=== PATIENT | female | born 1985 | race African-American/Black ===

== ENCOUNTER 2019-11-17 19:40 | Inpatient (IN) | payer MEDICAID, OTHER ==
[~2019-11-17] VITALS: Ht 185.4 cm; Wt 186.4 kg
[~2019-11-17 19:40] MED LIST: ALBU0.5N2; [UNRECOGNIZED DRUG - CODE]
[2019-11-17] MEDS ORDERED: MORPHINE SULFATE 4 MG/ML SYR/VIAL IV ONE (20:45)
[2019-11-17] MEDS ORDERED: ONDANSETRON HCL 4 MG/2 ML VIAL IV ONE (20:45)
[2019-11-17 22:16] LABS: BUN/Creatinine Ratio 10.9; Calcium 8.3 mg/dL (8.5-10.1); Magnesium 2.3 mg/dL (1.6-2.6); Potassium 3.1 mmol/L (3.5-5.1)
[2019-11-17 22:19] LABS: Bilirubin, Total 0.2 mg/dL (0.2-1.0); Total Protein 7.2 g/dL (6.4-8.2)
[2019-11-17 22:22] LABS: Basophils # (auto) 0 10 ^3/uL (0-0.2); Eosinophils # (auto) 0.1 10 ^3/uL (0-0.8); Eosinophils % (auto) 1.1 % (0.0-7.0); Lymphocytes # (auto) 3.1 10 ^3/uL (0.4-5.4); Monocytes # (auto) 0.5 10 ^3/uL (0-1.3)
[2019-11-17 22:23] LABS: Basophils % (auto) 0.3 % (0.0-2.0); Hematocrit 34.6 % (36.0-46.0); Lymphocytes % (auto) 39.6 % (10.0-50.0); Mean Corpuscular Hemoglobin 23.9 pg (28.0-32.0); Mean Corpuscular Hgb Conc. 31.6 g/dL (32.0-36.0); Mean Corpuscular Volume 75.6 fL (80.0-100.0); Monocytes % (auto) 6.7 % (0.0-12.0); Neutrophils # (auto) 4.1 10 ^3/uL (1.6-8.6); Neutrophils % (auto) 52.3 % (37.0-80.0); Platelet Count (auto) 316 10^3/uL (140-450); Red Blood Cells 4.58 10^6/uL (4.0-5.20); White Blood Cell 7.9 10^3/uL (4.4-10.8)
[2019-11-18] VITALS (7 sets, daily range): BP systolic 113–140; BP diastolic 59–93
[2019-11-18] MEDS ORDERED: ASPirin 81 mg TAB PO ONE (00:45)
[2019-11-18] MEDS ORDERED: POTASSIUM CHL 20 Meq TABLET PO ONE ×2 (01:00→10:45)
[2019-11-18] MEDS ORDERED: SODIUM CHLORIDE 0.9% 1,000 ML IV SCH (01:36)
[2019-11-18] MEDS ORDERED: ACETAMINOPHEN 325 MG TAB PO PRN (01:45)
[2019-11-18] MEDS ORDERED: IPRATROPIUM BROM 0.5 MG/2.5ML INH SOL NEB PRN (01:45)
[2019-11-18] MEDS ORDERED: ONDANSETRON HCL 4 MG/2 ML VIAL IV PRN (01:45)
[2019-11-18] MEDS ORDERED: ALBUTEROL SULF 2.5 MG/0.5ML(0.5%) NEB SOLN NEB PRN (01:45)
[2019-11-18 06:16] LABS: Potassium 3.4 mmol/L (3.5-5.1)
[2019-11-18 06:26] LABS: Albumin 2.8 g/dL (3.4-5.0); BUN/Creatinine Ratio 14.4; Calcium 8.1 mg/dL (8.5-10.1); Magnesium 2.3 mg/dL (1.6-2.6)
[2019-11-18 06:28] LABS: Bilirubin, Total 0.2 mg/dL (0.2-1.0)
[2019-11-18] MEDS: ASPirin 81 mg TAB PO SCH (09:44)
[2019-11-18] MEDS: LISINOPRIL 10 MG TAB PO SCH (09:45)
[2019-11-18] MEDS: DOCUSATE SOD 100 MG CAP PO SCH (09:45)
[2019-11-18] MEDS ORDERED: CARVEDILOL 3.125 MG TAB PO SCH (10:00)
[2019-11-18] MEDS ORDERED: CLOPIDOGREL BISULFATE 75 MG TAB PO SCH (10:00)
[2019-11-18 14:15] LABS: Urine Bacteria NONE SEEN /hpf (None Seen); Urine Blood Negative /uL (Negative); Urine Mucus FEW (None Seen); Urine Specific Gravity 1.021 (1.001-1.035); Urine WBC 4 /hpf (0 - 5)
[2019-11-18] MEDS: traMADol HCL 50 MG TAB PO PRN (14:50)
[2019-11-18] MEDS ORDERED: MORPHINE SULF INJ 2 MG/ML SYRINGE 1ML IV ONE (19:15)
[2019-11-18] MEDS: ATORVASTATIN 20 MG TAB PO SCH (22:15)
[2019-11-18] MEDS: METOPROLOL TARTRATE 25 MG TAB PO SCH (22:16)
[2019-11-19 05:00] VITALS: BP 145/98
[2019-11-19 07:15] LABS: INR 0.96 (0.9-1.15); Potassium 3.7 mmol/L (3.5-5.1)
[2019-11-19 07:34] LABS: BUN/Creatinine Ratio 13.4; Calcium 8.1 mg/dL (8.5-10.1); Magnesium 2.4 mg/dL (1.6-2.6)
[2019-11-19 08:46] LABS: Urine Bacteria NONE SEEN /hpf (None Seen); Urine Blood Negative /uL (Negative); Urine Specific Gravity 1.012 (1.001-1.035); Urine WBC 2 /hpf (0 - 5)
[2019-11-19 09:18] VITALS: BP 143/88
[2019-11-19] MEDS: LISINOPRIL 10 MG TAB PO SCH (10:02)
[2019-11-19] MEDS: ASPirin 81 mg TAB PO SCH (10:02)
[2019-11-19] MEDS: DOCUSATE SOD 100 MG CAP PO SCH (10:03)
[2019-11-19] MEDS: METOPROLOL TARTRATE 25 MG TAB PO SCH ×3 (10:03→21:59)
[2019-11-19] MEDS ORDERED: POTASSIUM CHL 10 Meq TABLET PO ONE (12:00)
[2019-11-19] MEDS: Ensure HIGH Protein Chocolate 8oz Bottle PO SCH ×2 (12:00→18:00)
[2019-11-19] MEDS ORDERED: HCTZ 25 MG TAB PO ONE (12:00)
[2019-11-19 13:08] VITALS: BP 156/106
[2019-11-19 17:11] VITALS: BP 150/95
[2019-11-19] MEDS: traMADol HCL 50 MG TAB PO PRN (17:44)
[2019-11-19] MEDS: ATORVASTATIN 20 MG TAB PO SCH (21:59)
[2019-11-19 22:00] VITALS: BP 151/94
[2019-11-19] MEDS ORDERED: HYDROcodone-ACET 5/325MG TAB PO PRN ×2 (22:30→23:00)
[2019-11-20 05:00] VITALS: BP 148/94
[2019-11-20 06:35] LABS: Basophils # (auto) 0 10 ^3/uL (0-0.2); Basophils % (auto) 0.3 % (0.0-2.0); Eosinophils # (auto) 0.2 10 ^3/uL (0-0.8); Eosinophils % (auto) 2.3 % (0.0-7.0); Hematocrit 34.9 % (36.0-46.0); Hemoglobin 10.9 g/dL (12.2-16.2); Lymphocytes # (auto) 3.6 10 ^3/uL (0.4-5.4); Lymphocytes % (auto) 49.7 % (10.0-50.0); Mean Corpuscular Hemoglobin 23.8 pg (28.0-32.0); Mean Corpuscular Hgb Conc. 31.2 g/dL (32.0-36.0); Mean Corpuscular Volume 76.3 fL (80.0-100.0); Monocytes # (auto) 0.5 10 ^3/uL (0-1.3); Monocytes % (auto) 6.6 % (0.0-12.0); Neutrophils % (auto) 41.1 % (37.0-80.0); Nucleated Red Blood Cells % 0.2 %; Platelet Count (auto) 291 10^3/uL (140-450); Red Blood Cells 4.58 10^6/uL (4.0-5.20); Red Cell Distribution Width 16.9 % (11.8-14.3); White Blood Cell 7.3 10^3/uL (4.4-10.8)
[2019-11-20 06:47] LABS: Potassium 3.5 mmol/L (3.5-5.1)
[2019-11-20 07:16] LABS: BUN/Creatinine Ratio 11.5; Calcium 8.7 mg/dL (8.5-10.1)
[2019-11-20 08:00] VITALS: BP 139/80
[2019-11-20] MEDS: LISINOPRIL 10 MG TAB PO SCH (09:34)
[2019-11-20] MEDS: DOCUSATE SOD 100 MG CAP PO SCH (09:34)
[2019-11-20] MEDS: ASPirin 81 mg TAB PO SCH (09:35)
[2019-11-20] MEDS: METOPROLOL TARTRATE 25 MG TAB PO SCH (09:35)
[2019-11-20] MEDS ORDERED: HCTZ 25 MG TAB PO SCH (10:00)
[2019-11-20] MEDS ORDERED: POTASSIUM CHL 10 Meq TABLET PO SCH (10:00)
[2019-11-20 12:00] VITALS: BP 141/97
[2019-11-20] MEDS ORDERED: TERBUTALINE SULFATE 1 MG/ML 1ML VIAL SC ONE (13:56)
== END 2019-11-20 12:35 | disposition home or self-care (01) | DRG 201 ==
LOC: EDBD 19:40 → ER 19:40 → EDUNIT# 19:40 → TELE 19:41 → TELE-CENTR 11-18 03:41
PROVIDERS: ADMIT Hospitalist; ATTEND Internal Medicine
DX: I47.1 Supraventricular tachycardia (principal); E66.01 Morbid (severe) obesity due to excess calories; E87.6 Hypokalemia; I10 Essential (primary) hypertension; J45.909 Unspecified asthma, uncomplicated; K80.20 Calculus of gallbladder without cholecystitis without obstruction; Z79.899 Other long term (current) drug therapy; Z82.49 Family history of ischemic heart disease and other diseases of the circulatory system; Z83.3 Family history of diabetes mellitus; Z68.43 Body mass index [BMI] 50.0-59.9, adult; E44.0 Moderate protein-calorie malnutrition
CPT/HCPCS: 36415; 71045; 76705; 80048; 80053; 80061; 81001; 83735; 83880; 84443; 84484; 85025; 85610; 85730; 93005; 93306; G0378; J2405

== ENCOUNTER 2021-10-14 | Emergency (ER) | payer MEDICAID ==
[~2021-10-14] VITALS: Ht 182.9 cm; Wt 175.5 kg
[~2021-10-14] MED LIST changes: +[UNRECOGNIZED DRUG - CODE]; -[UNRECOGNIZED DRUG - CODE]
[2021-10-14 01:11] LABS: Basophils # (auto) 0 10 ^3/uL (0-0.2); Basophils % (auto) 0.4 % (0.0-2.0); Eosinophils # (auto) 0.1 10 ^3/uL (0-0.8); Hemoglobin 9.7 g/dL (12.2-16.2); Lymphocytes # (auto) 2.6 10 ^3/uL (0.4-5.4); Monocytes # (auto) 0.5 10 ^3/uL (0-1.3); White Blood Cell 8.2 10^3/uL (4.4-10.8)
[2021-10-14 01:14] LABS: Eosinophils % (auto) 1.4 % (0.0-7.0); Hematocrit 30.8 % (36.0-46.0); Lymphocytes % (auto) 31.2 % (10.0-50.0); Mean Corpuscular Hemoglobin 23.9 pg (28.0-32.0); Mean Corpuscular Hgb Conc. 31.6 g/dL (32.0-36.0); Mean Corpuscular Volume 75.7 fL (80.0-100.0); Monocytes % (auto) 5.9 % (0.0-12.0); Neutrophils % (auto) 61.1 % (37.0-80.0); Red Blood Cells 4.06 10^6/uL (4.0-5.20); Red Cell Distribution Width 18.1 % (11.8-14.3)
[2021-10-14 01:33] LABS: Calcium 8.2 mg/dL (8.5-10.1)
[2021-10-14 01:35] LABS: BUN/Creatinine Ratio 9.4
[2021-10-14 01:37] LABS: Bilirubin, Total 0.2 mg/dL (0.2-1.0); Total Protein 7.7 g/dL (6.4-8.2)
[2021-10-14 02:06] LABS: Potassium 2.9 mmol/L (3.5-5.1)
[2021-10-14 02:12] LABS: Urine Bacteria NONE SEEN /hpf (None Seen); Urine Blood 3+ /uL (Negative); Urine Specific Gravity 1.018 (1.001-1.035); Urine WBC 31 /hpf (0 - 5)
[2021-10-14] MEDS ORDERED: ACETAMINOPHEN 325 MG TAB PO ONE (02:15)
[2021-10-14] MEDS ORDERED: POTASSIUM EFFERVESENT TAB 25 MEQ PO ONE (02:30)
[2021-10-14] MEDS ORDERED: CEPH-322 PO (04:43)
[2021-10-14 06:15] VITALS: BP 144/93
== END 2021-10-14 06:39 | disposition home or self-care (01) ==
LOC: ER 00:03
DX: O23.41 Unspecified infection of urinary tract in pregnancy, first trimester (principal); N39.0 Urinary tract infection, site not specified; Z79.899 Other long term (current) drug therapy; Z3A.01 Less than 8 weeks gestation of pregnancy
CPT/HCPCS: 36415; 76801; 80053; 81001; 84702; 85025; 86850; 86900; 86901

== ENCOUNTER 2021-10-16 12:54 | Emergency (ER) | payer MEDICAID ==
[~2021-10-16] VITALS: Ht 185.4 cm; Wt 136.1 kg
[~2021-10-16 12:54] MED LIST changes: +CEPH-322 PO
[2021-10-16 14:11] LABS: Basophils # (auto) 0.1 10 ^3/uL (0-0.2); Eosinophils # (auto) 0.1 10 ^3/uL (0-0.8); Monocytes # (auto) 0.6 10 ^3/uL (0-1.3); Monocytes % (auto) 6.8 % (0.0-12.0); Nucleated Red Blood Cells % 0.2 %; White Blood Cell 9.2 10^3/uL (4.4-10.8)
[2021-10-16 14:13] LABS: Basophils % (auto) 0.7 % (0.0-2.0); Eosinophils % (auto) 1.2 % (0.0-7.0); Hematocrit 28.6 % (36.0-46.0); Lymphocytes # (auto) 3.3 10 ^3/uL (0.4-5.4); Lymphocytes % (auto) 35.7 % (10.0-50.0); Mean Corpuscular Hemoglobin 23.8 pg (28.0-32.0); Mean Corpuscular Hgb Conc. 31.6 g/dL (32.0-36.0); Mean Corpuscular Volume 75.4 fL (80.0-100.0); Neutrophils # (auto) 5.1 10 ^3/uL (1.6-8.6); Neutrophils % (auto) 55.6 % (37.0-80.0); Red Cell Distribution Width 18.4 % (11.8-14.3)
[2021-10-16 14:15] LABS: Urine Bacteria NONE SEEN /hpf (None Seen); Urine Blood 3+ /uL (Negative); Urine Specific Gravity 1.018 (1.001-1.035); Urine WBC 41 /hpf (0 - 5)
[2021-10-16 14:29] LABS: BUN/Creatinine Ratio 9.7; Calcium 8.6 mg/dL (8.5-10.1); Potassium 3.2 mmol/L (3.5-5.1)
[2021-10-16 14:32] LABS: Bilirubin, Total 0.2 mg/dL (0.2-1.0); Total Protein 7.7 g/dL (6.4-8.2)
[2021-10-16 14:43] LABS: INR 0.98 (0.9-1.15); Partial Thromboplastin Time 25.6 sec (23.6-33.0)
[2021-10-17 02:23] VITALS: BP 154/110
== END 2021-10-16 20:56 | disposition home or self-care (01) ==
LOC: EDBD 12:54 → ER 12:54
DX: O02.1 Missed abortion (principal); Z3A.01 Less than 8 weeks gestation of pregnancy
CPT/HCPCS: 36415; 76801; 76817; 80053; 81001; 84702; 85025; 85610; 85730; 86850; 86900; 86901

== ENCOUNTER 2022-03-28 11:09 | Emergency (ER) | payer MEDICAID ==
[~2022-03-28] VITALS: Ht 185.4 cm; Wt 148.6 kg
[2022-03-28] MEDS ORDERED: ACETAMINOPHEN 500 MG TAB PO ONE (12:00)
[2022-03-28] MEDS ORDERED: cefTRIAXone SOD 1,000 MG VL IM ONE ×2 (12:00)
[2022-03-28] MEDS ORDERED: cloNIDine HCL 0.1 MG TAB PO ONE (12:00)
[2022-03-28 13:07] VITALS: BP 160/98
[2022-03-28] MEDS ORDERED: PENI500T2 PO (13:13)
[2022-03-28] MEDS ORDERED: LIDO2SOL23 MT (13:13)
== END 2022-03-28 13:20 | disposition home or self-care (01) ==
LOC: ER 11:09
DX: J03.00 Acute streptococcal tonsillitis, unspecified (principal); I10 Essential (primary) hypertension; J45.909 Unspecified asthma, uncomplicated; Z86.2 Personal history of diseases of the blood and blood-forming organs and certain disorders involving the immune mechanism; Z79.2 Long term (current) use of antibiotics; Z79.899 Other long term (current) drug therapy
CPT/HCPCS: 87880; 96372; 99284; J0696

== ENCOUNTER 2022-07-11 20:50 | Emergency (ER) | payer MEDICAID ==
[~2022-07-11] VITALS: Ht 182.9 cm; Wt 143.0 kg
[~2022-07-11 20:50] MED LIST changes: +LIDO2SOL23 MT; +PENI500T2 PO
[2022-07-11 23:36] VITALS: BP 100/65
[2022-07-12 00:17] LABS: Basophils # (auto) 0 10 ^3/uL (0-0.2); Basophils % (auto) 0.3 % (0.0-2.0); Eosinophils # (auto) 0 10 ^3/uL (0-0.8); Eosinophils % (auto) 0.5 % (0.0-7.0); Hemoglobin 10.1 g/dL (12.2-16.2); Lymphocytes # (auto) 1.8 10 ^3/uL (0.4-5.4); Monocytes # (auto) 0.8 10 ^3/uL (0-1.3); Monocytes % (auto) 8.3 % (0.0-12.0); Nucleated Red Blood Cells % 0.1 %
[2022-07-12 00:18] LABS: Hematocrit 33.4 % (36.0-46.0); Lymphocytes % (auto) 19.6 % (10.0-50.0); Mean Corpuscular Hemoglobin 20.8 pg (28.0-32.0); Mean Corpuscular Hgb Conc. 30.2 g/dL (32.0-36.0); Mean Corpuscular Volume 68.9 fL (80.0-100.0); Neutrophils # (auto) 6.5 10 ^3/uL (1.6-8.6); Neutrophils % (auto) 71.3 % (37.0-80.0); Red Blood Cells 4.85 10^6/uL (4.0-5.20); Red Cell Distribution Width 18.7 % (11.8-14.3); White Blood Cell 9.1 10^3/uL (4.4-10.8)
[2022-07-12 00:21] LABS: Albumin 3.1 g/dL (3.4-5.0); BUN/Creatinine Ratio 10.7; Calcium 8.2 mg/dL (8.5-10.1); Potassium 3.4 mmol/L (3.5-5.1)
[2022-07-12 00:24] LABS: Bilirubin, Total 0.3 mg/dL (0.2-1.0); Total Protein 7.5 g/dL (6.4-8.2)
== END 2022-07-12 01:29 | disposition left against medical advice (07) ==
LOC: ER 20:50
DX: R53.1 Weakness (principal); Z53.21 Procedure and treatment not carried out due to patient leaving prior to being seen by health care provider; Z20.822 Contact with and (suspected) exposure to COVID-19
CPT/HCPCS: 36415; 71045; 80053; 84484; 85025; 87426; 87804; 93005

== ENCOUNTER 2023-03-17 23:51 | Emergency (ER) | payer MEDICAID ==
[~2023-03-17] VITALS: Ht 177.8 cm; Wt 159.0 kg
[~2023-03-17 23:51] MED LIST changes: -CEPH-322 PO; +CEPH250C PO; -LIDO2SOL23 MT; +LIDO2SOL26 MT; +[UNRECOGNIZED DRUG - CODE]; -[UNRECOGNIZED DRUG - CODE]
[2023-03-18] MEDS ORDERED: ADENOSINE 6 MG/2 ML INJ IV ONE ×3 (00:02→01:15)
[2023-03-18] MEDS ORDERED: ACETAMINOPHEN 500 MG TAB PO ONE (00:30)
[2023-03-18 01:12] VITALS: PULSE 93; RESP 16; O2SAT 96
[2023-03-18 05:00] VITALS: BP 148/102; PULSE 76; RESP 17; O2SAT 95
== END 2023-03-18 05:30 | disposition home or self-care (01) ==
LOC: EDBD 23:51 → ER 23:51
DX: O99.412 Diseases of the circulatory system complicating pregnancy, second trimester (principal); I47.10 Supraventricular tachycardia, unspecified; O16.2 Unspecified maternal hypertension, second trimester; O99.512 Diseases of the respiratory system complicating pregnancy, second trimester; J45.909 Unspecified asthma, uncomplicated; Z86.2 Personal history of diseases of the blood and blood-forming organs and certain disorders involving the immune mechanism; Z79.2 Long term (current) use of antibiotics; Z79.899 Other long term (current) drug therapy; Z3A.17 17 weeks gestation of pregnancy
CPT/HCPCS: 92960; 93005; 96374; 99285; J0153